=== PATIENT | female | born 1975 ===

== ENCOUNTER 2017-11-04 18:57 | Emergency (ER) | payer OTHER ==
[2017-03-20 11:53] VITALS: BMI 24.0
[2017-11-04 19:03] VITALS: PULSE 68; RESP 16; O2SAT 100
[2017-11-04 20:25] LABS: ALB/GLOB RATIO 1.3 (1.0-2.1); ALBUMIN 4.1 g/dL (3.5-5.0); CALCIUM 8.8 mg/dL (8.4-10.2); GFR AFRICAN-AMERICAN > 60; GFR NON-AFRICAN AMERICAN > 60
[2017-11-04] MEDS: Sodium Chloride 0.9% 1,000 ML IV STA (20:25)
[2017-11-04 20:26] LABS: BASO % 0.8 % (0.0-2.0); EOS % 0.7 % (0.0-4.0); HEMOGLOBIN 10.2 g/dL (12.0-16.0); LYMPH # 1.5 K/uL (1.0-4.3); LYMPH % 36.4 % (20.0-40.0); MEAN CELL VOLUME 82.1 fl (81.0-99.0); MEAN CORPUSCULAR HEMOGLOBIN 26.4 pg (27.0-31.0); MEAN CORPUSCULAR HGB CONC 32.2 g/dL (33.0-37.0); MEAN PLATELET VOLUME 9.9 fl (7.2-11.7); MONO # 0.4 K/uL (0.0-0.8); MONO % 10.1 % (0.0-10.0); NEUT # 2.2 K/uL (1.8-7.0); NRBC % 0.1 % (0.0-0.0); RBC 3.85 Mil/uL (3.80-5.20); RED CELL DISTRIBUTION WIDTH 19.2 % (11.5-14.5); WHITE BLOOD COUNT 4.3 K/uL (4.8-10.8)
--- NOTE | 2017-11-04 20:28 | ED PDOC ---
HPI: General Adult Time Seen by Provider: 11/04/17 19:00 Chief Complaint (Nursing): Dizziness/Lightheaded Chief Complaint (Provider): Dizziness/Lightheaded History Per: Patient History/Exam Limitations: no limitations Onset/Duration Of Symptoms: Days (x 3 months) Current Symptoms Are (Timing): Still Present Additional Complaint(s): 41 year old female with a history of precancerous uterus presents to the ED with dizziness since her surgery in July on her uterus. Upon arrival she feels a little dizzy. Denies fever, vomiting, diarrhea and headache. PMD: Dr. Toshia Peterson Past Medical History Reviewed: Historical Data, Nursing Documentation, Vital Signs Vital Signs: Last Vital Signs Temp 98.6 F 11/04/17 23:25 Pulse 68 11/04/17 23:25 Resp 16 11/04/17 23:25 BP 136/82 11/04/17 23:25 Pulse Ox 100 11/04/17 23:25 - Medical History Other PMH: precancer of the uterus - Surgical History Other surgeries: uterus surgery - Family History Family History: States: Unknown Family Hx - Social History Current smoker - smoking cessation education provided: No Alcohol: None Drugs: Denies - Allergies Allergies/Adverse Reactions: Allergies Allergy/AdvReac Type Severity Reaction Status Date / Time No Known Allergies Allergy Verified 03/20/17 11:52 Review of Systems ROS Statement: Except As Marked, All Systems Reviewed And Found Negative Constitutional: Positive for: Other (dizziness). Negative for: Fever Gastrointestinal: Negative for: Nausea, Vomiting, Diarrhea Neurological: Negative for: Headache Physical Exam - Reviewed Nursing Documentation Reviewed: Yes Vital Signs Reviewed: Yes - Physical Exam Appears: Positive for: Non-toxic, No Acute Distress Head Exam: Positive for: ATRAUMATIC, NORMAL INSPECTION, NORMOCEPHALIC Skin: Positive for: Normal Color, Warm, Dry Eye Exam: Positive for: Normal appearance, EOMI, PERRL. Negative for: Nystagmus ENT: Positive for: Normal ENT Inspection Neck: Positive for: Normal, Painless ROM, Supple Cardiovascular/Chest: Positive for: Regular Rate, Rhythm. Negative for: Murmur Respiratory: Positive for: Normal Breath Sounds. Negative for: Respiratory Distress Gastrointestinal/Abdominal: Positive for: Normal Exam, Soft. Negative for: Tenderness Extremity: Positive for: Normal ROM. 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 Negative for: Motor/Sensory Deficits, Aphasia, Facial Droop - Laboratory Results Result Diagrams: 11/04/17 21:00 11/04/17 20:11 - ECG O2 Sat by Pulse Oximetry: 100 (Ra) Pulse Ox Interpretation: Normal Medical Decision Making Medical Decision Making: Time: 19:52 Impression: dizziness initial Plan --Head CT -_EKG --CMP --CBC --NS IV 150 mls/hr --urine cx --UA --orhtostatic BP Head Ct FINDINGS: Brain: No acute intracranial hemorrhage. No abnormal extra-axial fluid collection. No herniation. Patent basal cisterns. Preserved hernandez-white matter differentiation. No evidence of acute ischemia. No evident intracranial mass. Ventricles: No ventriculomegaly. Bones/joints: No evident acute fracture or suspicious osseous lesion. Sinuses: The imaged paranasal sinuses are clear. Mastoid air cells: The mastoid air cells are clear. Soft tissues: No acute findings. IMPRESSION: No acute findings. Time; 22:00 --Troponin I Time; 22:50 --Labs show slight anemia. Troponin levels are normal EKG --NSR bradycardic at 55 pt is not orthostatic. pt appears comfortable in nno distress. Patient is stable and will be discharged. Advised to follow up as an outpatient for anemia. Return to the ED if symptoms persist or worsen. Patient states she does not have a PMD, so a recommendation was given to follow up with. Scribe Attestation: Documented by Allison Silverio, acting as a scribe for Rusty Delarosa MD Provider Scribe Attestation: All medical record entries made by the Scribe were at my direction and personally dictated by me. I have reviewed the chart and agree that the record accurately reflects my personal performance of the history, physical exam, medical decision making, and the department course for this patient. I have also personally directed, reviewed, and agree with the discharge instructions and disposition. Disposition - Clinical Impression Clinical Impression: Dizziness, Anemia - Patient ED Disposition Is Patient to be Admitted: No Counseled Patient/Family Regarding: Studies Performed, Diagnosis, Need For Followup - Disposition Referrals: [facility] [Outside] [facility] [Outside] Disposition: Routine/Home Disposition Time: 22:00 Condition: IMPROVED Additional Instructions: follow up with your primary doctor in 1-2 days take iron tablets daily return to the ED with any worsening or concerning symptoms Instructions: Dizziness, Nonvertigo, (DC) Forms: [employer] (Danish) Print Language: TAMAZIGHT
[2017-11-04 21:03] LABS: ALT/SGPT 28 U/L (9-52); AST/SGOT 39 U/L (14-36); BLOOD UREA NITROGEN 12 mg/dl (7-17)
[2017-11-04 21:10] LABS: SQUAMOUS EPITHIAL < 1 /hpf (0-5); URINE BILIRUBIN NEGATIVE (NEGATIVE); URINE BLOOD MODERATE (NEGATIVE); URINE CLARITY CLEAR (Clear); URINE COLOR YELLOW (YELLOW); URINE GLUCOSE (UA) NEG (Normal); URINE LEUKOCYTE ESTERASE NEG Leu/uL (Negative); URINE PROTEIN NEGATIVE (NEGATIVE); URINE UROBILINOGEN 0.2-1.0 mg/dL (0.2-1.0)
[2017-11-05 00:50] VITALS: BP 136/82; TEMP 98.6
--- NOTE | 2017-11-05 08:37 | CT ---
PROCEDURE: CT HEAD WITHOUT CONTRAST. HISTORY: Dizziness COMPARISON: None available. TECHNIQUE: Axial computed tomography images were obtained through the head/brain without intravenous contrast. Radiation dose: Total exam DLP = 783.51 mGy-cm. This CT exam was performed using one or more of the following dose reduction techniques: Automated exposure control, adjustment of the mA and/or kV according to patient size, and/or use of iterative reconstruction technique. FINDINGS: HEMORRHAGE: No intracranial hemorrhage. BRAIN: Day-white matter differentiation is preserved. There is no mass, mass effect or abnormal extra-axial fluid collection. There is no territorial infarction. The midline sagittal structures are normal. VENTRICLES: The ventricles are normal in size, shape and configuration. CALVARIUM: The skull base and calvarium are normal. PARANASAL SINUSES: Predominantly clear. MASTOID AIR CELLS: Predominantly clear. OTHER FINDINGS: None. IMPRESSION: No acute intracranial abnormality. A preliminary report was provided by [employer].
--- NOTE | 2017-11-06 10:57 | CARD ---
APPROVED REPORT EKG Measurement Heart [id number] [place] [id number] [id number] <Conclusion> Sinus bradycardia Otherwise normal ECG
== END 2017-11-04 23:21 | disposition home or self-care (01) ==
LOC: H.ER 18:57
DX: R42 Dizziness and giddiness (principal); D64.9 Anemia, unspecified
CPT/HCPCS: 70450; 80053; 81003; 81025; 82948; 84484; 85025; 87086; 93005; 99285; J7030